=== PATIENT | female | born 1995 | race American Indian/Alaskan Native ===

== ENCOUNTER 2016-05-31 10:49 | Emergency (ER) | payer SELFPAY ==
--- NOTE | 2016-05-31 12:57 | Emergency Department Report ---
- General Chief complaint: Laceration/Recheck/Suture Stated complaint: PREV PAIN Time Seen by Provider: 05/31/16 12:14 Source: patient Mode of arrival: Ambulatory Limitations: No Limitations - History of Present Illness Initial comments: Pt here reported pain on and off since February 2016. She said the scar is hurting but denies any redness or drainage. Denies any fever or chills. Denies any nausea vomiting or diarrhea. Pain to palpate is 6 out of 10. 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 No [id number] medication taken. MD complaint: other (pain at csection site) Onset/Timin -: month(s) Tetanus Up to Date: yes Severity scale (0 -10): 6 (csectio scar site) Quality: other (sore) Consistency: intermittent Improves with: rest Worsens with: palpation Context: other (csection) Associated symptoms: denies other symptoms Treatments Prior to Arrival: none - Related Data Previous Rx's Medication Instructions Recorded Last Taken Type Naproxen [Naprosyn TAB] 500 mg PO BID PRN #10 tablet 05/31/16 Unknown Rx Allergies Allergy/AdvReac Type Severity Reaction Status Date / Time No Known Allergies Allergy Verified 05/31/16 11:33 Abscess Boil HPI - HPI Chief Complaint: Laceration/Recheck/Suture Stated Complaint: PREV PAIN Time Seen by Provider: 05/31/16 12:14 Home Medications: Previous Rx's Medication Instructions Recorded Last Taken Type Naproxen [Naprosyn TAB] 500 mg PO BID PRN #10 tablet 05/31/16 Unknown Rx Allergies/Adverse Reactions: Allergies Allergy/AdvReac Type Severity Reaction Status Date / Time No Known Allergies Allergy Verified 05/31/16 11:33 ED Review of Systems ROS: Stated complaint: PREV PAIN Other details as noted in HPI Comment: All other systems reviewed and negative Constitutional: denies: chills, fever Respiratory: no symptoms reported Cardiovascular: denies: chest pain, palpitations, edema, syncope Musculoskeletal: denies: back pain Skin: other (scar pain). denies: rash, lesions Neurological: denies: headache ED Past Medical Hx - Past Medical History Previous Medical History?: Yes Hx Psychiatric Treatment: Yes ([facility] 2010) Additional medical history: born addicted - Surgical History Past Surgical History?: Yes Additional Surgical History: - Family History Family history: no significant - Social History Smoking Status: Never Smoker Substance Use Type: None - Medications Home Medications: Home Medications Medication Instructions Recorded Confirmed Last Taken Type Naproxen [Naprosyn TAB] 500 mg PO BID PRN #10 tablet 05/31/16 Unknown Rx ED Physical Exam - General Limitations: No Limitations General appearance: alert, in no apparent distress - Head Head exam: Present: atraumatic, normocephalic, normal inspection - Eye Eye exam: Present: normal appearance, PERRL, EOMI Pupils: Present: normal accommodation - Neck Neck exam: Present: normal inspection, full ROM. Absent: tenderness, meningismus, lymphadenopathy - Respiratory Respiratory exam: Present: normal lung sounds bilaterally. Absent: respiratory distress, chest wall tenderness - Cardiovascular Cardiovascular Exam: Present: regular rate, normal rhythm, normal heart sounds - GI/Abdominal GI/Abdominal exam: Present: soft, normal bowel sounds. Absent: distended, tenderness, guarding, rebound, rigid, mass, pulsatile mass - Extremities Exam Extremities exam: Present: normal inspection, full ROM, normal capillary refill. Absent: tenderness, pedal edema, joint swelling, calf tenderness - Back Exam Back exam: Present: normal inspection, full ROM - Neurological Exam Neurological exam: Present: alert, oriented X3, normal gait - Psychiatric Psychiatric exam: Present: normal affect, normal mood - Skin Skin exam: Present: warm, dry, intact, normal color, other ( site to pelvic area with mild keloid. Nontender to palpate. No erythema, induration or fluctuance. No drainage noted.) - Expanded Skin Exam Expanded Type of lesion: Present: other ( scar healed) Distribution of rash: abdomen (pain to site) Description of rash: Present: other (minimal keloid). Absent: tenderness, erythematous, swelling, crusting, discharge, fluctuant ED Course Vital Signs 05/31/16 05/31/16 11:35 13:56 Temperature 98.6 F 98.7 F Pulse Rate 72 70 Respiratory 17 18 Rate Blood Pressure 106/40 Blood Pressure 110/38 [Right] O2 Sat by Pulse 98 100 Oximetry - Reevaluation(s) Reevaluation #1: 05/31/16 13:30 Patient went uneventfully ED stay ED Medical Decision Making - Medical Decision Making ED Course: patient with scar that is already healed. She has keloid to area. no signs of infection. patient discharged home with naproxen. Critical care attestation.: If time is entered above; I have spent that time in minutes in the direct care of this critically ill patient, excluding procedure time. ED Disposition Clinical Impression: Scar painful, History of Disposition: DISCHARGED TO HOME OR SELFCARE Is pt being admited?: No Does the pt Need Aspirin: No Condition: Stable Instructions: Musculoskeletal Pain (ED) Additional Instructions: Your scar from is healed with minimal keloid. You have no signs of infection. Prescriptions: Naproxen [Naprosyn TAB] 500 mg PO BID PRN #10 tablet PRN Reason: Pain Referrals: [facility] [Outside] - 06/02/16 Forms: Accompanied Note, Work/School Release Form(ED)
[2016-05-31 13:57] VITALS: BP 110/38
== END 2016-05-31 13:57 | disposition home or self-care (01) ==
LOC: ED 10:49
DX: L90.5 Scar conditions and fibrosis of skin (principal)
CPT/HCPCS: 99282